=== PATIENT | male | born 1960 | race Caucasian/White ===

== ENCOUNTER 2018-01-27 17:31 | Observation (INO) ==
[2018-01-27] MEDS ORDERED: 0.9 % Sodium Chloride 1,000 ML IVC ONE (17:40)
--- NOTE | 2018-01-27 17:43 | Emergency Department Note ---
Disposition Clinical Impression: Dyspnea Qualifiers: Dyspnea type: unspecified Qualified Code(s): R06.00 - Dyspnea, unspecified Chest pain Qualifiers: Chest pain type: chest pain on breathing Qualified Code(s): R07.1 - Chest pain on breathing Disposition: Admitted As Inpatient Condition: Fair Referrals: Teresa Huizar MD [Primary Care Provider] - Forms: ED Satisfaction Letter General Adult HPI - General Chief complaint: ED Shortness of Breath/Dyspnea Stated complaint: dyspnea Time Seen by Provider: 01/27/18 17:35 Nursing Notes Reviewed: Yes Vital Signs Reviewed: Yes - History of Present Illness HPI Narrative: 57-year-old male presents to the emergency department with left-sided chest pain , shortness of breath, cough for the last 3 days. Patient states it hurts when he takes deep breaths in. Patient states he was at an urgent care and diagnosed with pneumonia there. Told to go to the emergency department if he got any worse. Patient has no history of pulmonary emboli. Denies any recent immobilization. Patient denies any history of smoking. Patient has no history of coronary artery disease. Patient denies any fever. Reports that he has not had a fever at urgent care either. - Related Data Previous Rx's Medication Instructions Recorded Ibuprofen [Motrin] 600 mg PO Q6-8H PRN 7 Days #28 tab 05/15/17 Cefdinir [Omnicef] 300 mg PO BID 7 Days #14 capsule 01/27/18 Allergies Allergy/AdvReac Type Severity Reaction Status Date / Time No Known Allergies Allergy Verified 01/27/18 14:13 All systems ED: reviewed and negative except as stated. Review of Systems: As Per HPI Constitutional: Denies: fever Cardiovascular: Reports: chest pain Respiratory: Reports: cough, dyspnea. Denies: hemoptysis Gastrointestinal: Denies: abdominal pain, nausea, vomiting Musculoskeletal: Denies: back pain Integumentary: Denies: rash Past Medical History - Past Medical History Medical history: Reports: non-contributory Surgical history: Reports: herniorrhaphy Psychiatric history: Reports: no psych history - Social History Smoking Status: Never smoker Smokeless Tobacco Status: No Alcohol use: Reports: none Drug use: Reports: none Physical Exam - General Limitations: other (Appears to be in respiratory distress) General appearance: alert - Head Head exam: normocephalic - Eye Eye exam: Present: EOMI - ENT ENT exam: normal exam - Neck Neck exam: Present: trachea midline - Chest Chest inspection: Present: normal inspection - Respiratory Respiratory exam: Present: normal lung sounds bilaterally, respiratory distress - Cardiovascular Cardiovascular exam: Present: normal rhythm, tachycardia - Abdominal Exam Abdominal exam: Present: soft, Non-Tender. Absent: distention, guarding, rebound, rigidity - Extremities Exam Extremities exam: Present: normal capillary refill - Back Exam Back exam: Present: full ROM - Neurological Exam Neurological exam: Present: alert, oriented X3, CN II-XII intact - Skin Skin exam: Present: warm, dry, intact, normal color Course Vital Signs Temperature 98.8 F 01/27/18 17:32 Pulse Rate 113 01/27/18 17:32 Respiratory Rate 24 01/27/18 17:32 O2 Sat by Pulse Oximetry 94 01/27/18 17:32 Temperature 98.8 F 01/27/18 17:58 Pulse Rate 78 01/27/18 18:40 Respiratory Rate 19 01/27/18 18:40 Blood Pressure 130/88 01/27/18 18:40 O2 Sat by Pulse Oximetry 98 01/27/18 18:40 Oxygen Delivery Oxygen Delivery Room Air Medical Decision Making - [facility] Narrative Medical decision making narrative: 57-year-old male presents emergency department with tachycardia concern for left -sided chest pain. Patient was diagnosed with pneumonia and urgent care. At this time, patient is requiring 2 L of oxygen via nasal cannula as he is hypoxic. He is also tachycardic. He appears to be in moderate discomfort. We have given patient fentanyl. Chest x-ray that was obtained earlier reveals left lower lobe pneumonia and pleural effusion. EKG does not reveal any ischemic ST changes. At this time, we have obtained a troponin. This is within normal limits. Patient is leukocytosis of 12.1. CTA of the chest was obtained to both rule out pulmonary embolus as well to further delineate the patient's chest x-ray findings. CTA revealed multifocal airspace disease with left being greater than right. He favored pneumonia. We will small pleural effusion on the left. No findings of PE. Patient will be admitted due to multifocal pneumonia, hypoxia requiring oxygen via nasal cannula, and need for pain control. Patient agreed with the plan. Not in any acute distress at time of admission. Vital Signs Temperature 98.8 F 01/27/18 17:32 Pulse Rate 113 07/08/18 17:32 Respiratory Rate 24 01/27/18 17:32 O2 Sat by Pulse Oximetry 94 01/27/18 17:32 Temperature 98.8 F 01/27/18 17:58 Pulse Rate 78 01/27/18 18:40 Respiratory Rate 19 01/27/18 18:40 Blood Pressure 130/88 01/27/18 18:40 O2 Sat by Pulse Oximetry 98 01/27/18 18:40 Oxygen Delivery Oxygen Delivery Room Air Chest CTA 01/27/18 18:19 IMPRESSION: Multifocal airspace disease, left greater than right. Pneumonia is favored over asymmetric edema Small pleural effusion on the left. No findings diagnostic of pulmonary embolus. D/ / Yo Malin / Yo Malin Interpreting Provider: Yo Malin - Lab Data Result diagrams: 01/27/18 17:56 01/27/18 17:56 Lab Results 01/27/18 01/27/18 01/27/18 Range/Units 17:56 17:56 17:56 WBC 12.1 H (4.3-11.1) K/mcL RBC 4.58 (4.19-5.50) M/mcL Hgb 13.7 (12.9-16.9) g/dL Hct 39.6 (37.5-50.1) % MCV 86.5 (83.0-100.0) fL MCH 29.9 (28.0-33.3) pg MCHC 34.6 (31.6-35.5) g/dL RDW 13.0 (11.5-14.5) % Plt Count 293 (140-400) K/mcL MPV 8.8 L (9.4-12.4) fL Immature Gran % 0.4 (0-4) % Seg Neutrophils % 75.6 % Lymphocytes % 13.0 % Monocytes % 9.4 % Eosinophils % 1.3 % Basophils % 0.3 % Neutrophils # 9.1 H (1.6-8.9) K/mcL Lymphocytes # 1.6 (0.6-4.6) K/mcL Monocytes # 1.1 (0.0-1.3) K/mcL Eosinophils # 0.2 (0.0-0.6) K/mcL Basophils # 0.0 (0.0-0.2) K/mcL Sodium 136 (136-145) mEq/L Potassium 4.0 (3.5-5.1) mEq/L Chloride 104 (98-107) mEq/L Carbon Dioxide 23 (23-29) mEq/L BUN 12 (6-20) mg/dL Creatinine 0.76 (0.70-1.30) mg/dL Est GFR ( Amer) > 60 (> 60) Est GFR (Non-Af Amer) > 60 (> 60) BUN/Creatinine Ratio 16 (6-26) Glucose 109 H (70-105) mg/dL Calculated Osmolality 282 (280-300) Lactic Acid 0.6 (0.5-2.2) mmol/L Calcium 9.8 (8.6-10.3) mg/dL Troponin I < 0.03 (< 0.04) ng/mL B-Natriuretic Peptide (Less than 100) pg/mL 01/27/18 01/27/18 Range/Units 17:56 19:50 WBC (4.3-11.1) K/mcL RBC (4.19-5.50) M/mcL Hgb (12.9-16.9) g/dL Hct (37.5-50.1) % MCV (83.0-100.0) fL MCH (28.0-33.3) pg MCHC (31.6-35.5) g/dL RDW (11.5-14.5) % Plt Count (140-400) K/mcL MPV (9.4-12.4) fL Immature Gran % (0-4) % Seg Neutrophils % % Lymphocytes % % Monocytes % % Eosinophils % % Basophils % % Neutrophils # (1.6-8.9) K/mcL Lymphocytes # (0.6-4.6) K/mcL Monocytes # (0.0-1.3) K/mcL Eosinophils # (0.0-0.6) K/mcL Basophils # (0.0-0.2) K/mcL Sodium (136-145) mEq/L Potassium (3.5-5.1) mEq/L Chloride (98-107) mEq/L Carbon Dioxide (23-29) mEq/L BUN (6-20) mg/dL Creatinine (0.70-1.30) mg/dL Est GFR ( Amer) (> 60) Est GFR (Non-Af Amer) (> 60) BUN/Creatinine Ratio (6-26) Glucose (70-105) mg/dL Calculated Osmolality (280-300) Lactic Acid 1.1 (0.5-2.2) mmol/L Calcium (8.6-10.3) mg/dL Troponin I (< 0.04) ng/mL B-Natriuretic Peptide 21 (Less than 100) pg/mL - EKG Data EKG #1 EKG attestation: Yes I reviewed and interpreted this EKG. EKG results narrative: 17:38 Ventricular rate 103 bpm, W[place] interval 147 ms, QRS duration 86 ms, QT 311 ms, QTC 370 ms, normal axis. Sinus tachycardia with a ventricular rate of 103 bpm. There is no ischemic ST changes on this EKG. Compared to a study obtained on 04/26/2012. EKG #2 obtained 18:21 Ventricular rate 76 bpm, W[place] interval 152 ms, QRS duration 89 ms, QT 341 ms, QTC 372 ms, normal axis. Sinus rhythm ventricular rate of 76 bpm. Inverted T-wave in lead 3 not seen on EKG obtained at 17:38. No other changes noted.
[2018-01-27] MEDS ORDERED: Ipratropium/Albuterol Neb 3 ML IH ONE (17:54)
[2018-01-27] MEDS ORDERED: *HR* FentaNYL (PF) 100 MCG/2 ML VIAL IVP ONE ×3 (17:56→20:11)
[2018-01-27 18:15] LABS: Basophils % 0.3 %; Eosinophils # 0.2 K/mcL (0.0-0.6); Eosinophils % 1.3 %; Hematocrit 39.6 % (37.5-50.1); Hemoglobin 13.7 g/dL (12.9-16.9); Immature Granulocytes % 0.4 % (0-4); Lymphocytes # 1.6 K/mcL (0.6-4.6); Mean Corpuscular HGB Conc 34.6 g/dL (31.6-35.5); Mean Corpuscular Hemoglobin 29.9 pg (28.0-33.3); Mean Corpuscular Volume 86.5 fL (83.0-100.0); Mean Platelet Volume 8.8 fL (9.4-12.4); Monocytes # 1.1 K/mcL (0.0-1.3); Monocytes % 9.4 %; Neutrophils # 9.1 K/mcL (1.6-8.9); Platelet Count 293 K/mcL (140-400); Red Blood Count 4.58 M/mcL (4.19-5.50); Segmented Neutrophils % 75.6 %
[2018-01-27] MEDS ORDERED: Isovue-370 500 ML INFUS..BTL IV ONE (18:19)
[2018-01-27 18:36] LABS: BUN/Creatinine Ratio 16 (6-26); Blood Urea Nitrogen 12 mg/dL (6-20); Calcium 9.8 mg/dL (8.6-10.3); Carbon Dioxide 23 mEq/L (23-29); Chloride 104 mEq/L (98-107); Glucose 109 mg/dL (70-105); Osmolality,Calculated 282 (280-300); Sodium 136 mEq/L (136-145); eGFR For African Americans > 60 (> 60); eGFR For Non-African Americans > 60 (> 60)
[2018-01-27 18:38] LABS: Troponin I < 0.03 ng/mL (< 0.04)
--- NOTE | 2018-01-27 18:38 | Emergency Department Note ---
Disposition Clinical Impression: Dyspnea Qualifiers: Dyspnea type: unspecified Qualified Code(s): R06.00 - Dyspnea, unspecified Chest pain Qualifiers: Chest pain type: chest pain on breathing Qualified Code(s): R07.1 - Chest pain on breathing Disposition: Still a Patient Condition: Fair Referrals: Teresa Huizar MD [Primary Care Provider] - Forms: ED Satisfaction Letter SOB HPI - General Chief Complaint: ED Shortness of Breath/Dyspnea Stated Complaint: dyspnea Time Seen by Provider: 01/27/18 17:35 Source: patient Limitations: other (Appears to be in respiratory distress) Nursing Notes Reviewed: Yes Vital Signs Reviewed: Yes - Related Data Previous Rx's Medication Instructions Recorded Ibuprofen [Motrin] 600 mg PO Q6-8H PRN 7 Days #28 tab 05/15/17 Cefdinir [Omnicef] 300 mg PO BID 7 Days #14 capsule 01/27/18 Allergies Allergy/AdvReac Type Severity Reaction Status Date / Time No Known Allergies Allergy Verified 01/27/18 14:13 Constitutional: Denies: fever Cardiovascular: Reports: chest pain Respiratory: Reports: cough, dyspnea. Denies: hemoptysis Gastrointestinal: Denies: abdominal pain, nausea, vomiting Musculoskeletal: Denies: back pain Integumentary: Denies: rash Past Medical History - Past Medical History Medical history: Reports: non-contributory Surgical history: Reports: herniorrhaphy Psychiatric history: Reports: no psych history - Social History Smoking Status: Never smoker Smokeless Tobacco Status: No Alcohol use: Reports: none Drug use: Reports: none Physical Exam - General Limitations: other (Appears to be in respiratory distress) General appearance: alert Course Vital Signs Temperature 98.8 F 01/27/18 17:32 Pulse Rate 113 01/27/18 17:32 Respiratory Rate 24 01/27/18 17:32 O2 Sat by Pulse Oximetry 94 01/27/18 17:32 Temperature 98.8 F 01/27/18 17:58 Pulse Rate 78 01/27/18 18:40 Respiratory Rate 19 01/27/18 18:40 Blood Pressure 130/88 01/27/18 18:40 O2 Sat by Pulse Oximetry 98 01/27/18 18:40 Oxygen Delivery Oxygen Delivery Room Air Shortness of Breath/Dyspnea - Lab Data Result diagrams: 01/27/18 17:56 07/08/18 17:56 Lab Results 01/27/18 01/27/18 01/27/18 Range/Units 17:56 17:56 17:56 WBC 12.1 H (4.3-11.1) K/mcL RBC 4.58 (4.19-5.50) M/mcL Hgb 13.7 (12.9-16.9) g/dL Hct 39.6 (37.5-50.1) % MCV 86.5 (83.0-100.0) fL MCH 29.9 (28.0-33.3) pg MCHC 34.6 (31.6-35.5) g/dL RDW 13.0 (11.5-14.5) % Plt Count 293 (140-400) K/mcL MPV 8.8 L (9.4-12.4) fL Immature Gran % 0.4 (0-4) % Seg Neutrophils % 75.6 % Lymphocytes % 13.0 % Monocytes % 9.4 % Eosinophils % 1.3 % Basophils % 0.3 % Neutrophils # 9.1 H (1.6-8.9) K/mcL Lymphocytes # 1.6 (0.6-4.6) K/mcL Monocytes # 1.1 (0.0-1.3) K/mcL Eosinophils # 0.2 (0.0-0.6) K/mcL Basophils # 0.0 (0.0-0.2) K/mcL Sodium 136 (136-145) mEq/L Potassium 4.0 (3.5-5.1) mEq/L Chloride 104 (98-107) mEq/L Carbon Dioxide 23 (23-29) mEq/L BUN 12 (6-20) mg/dL Creatinine 0.76 (0.70-1.30) mg/dL Est GFR ( Amer) > 60 (> 60) Est GFR (Non-Af Amer) > 60 (> 60) BUN/Creatinine Ratio 16 (6-26) Glucose 109 H (70-105) mg/dL Calculated Osmolality 282 (280-300) Lactic Acid 0.6 (0.5-2.2) mmol/L Calcium 9.8 (8.6-10.3) mg/dL Troponin I < 0.03 (< 0.04) ng/mL B-Natriuretic Peptide (Less than 100) pg/mL 01/27/18 01/27/18 Range/Units 17:56 19:50 WBC (4.3-11.1) K/mcL RBC (4.19-5.50) M/mcL Hgb (12.9-16.9) g/dL Hct (37.5-50.1) % MCV (83.0-100.0) fL MCH (28.0-33.3) pg MCHC (31.6-35.5) g/dL RDW (11.5-14.5) % Plt Count (140-400) K/mcL MPV (9.4-12.4) fL Immature Gran % (0-4) % Seg Neutrophils % % Lymphocytes % % Monocytes % % Eosinophils % % Basophils % % Neutrophils # (1.6-8.9) K/mcL Lymphocytes # (0.6-4.6) K/mcL Monocytes # (0.0-1.3) K/mcL Eosinophils # (0.0-0.6) K/mcL Basophils # (0.0-0.2) K/mcL Sodium (136-145) mEq/L Potassium (3.5-5.1) mEq/L Chloride (98-107) mEq/L Carbon Dioxide (23-29) mEq/L BUN (6-20) mg/dL Creatinine (0.70-1.30) mg/dL Est GFR ( Amer) (> 60) Est GFR (Non-Af Amer) (> 60) BUN/Creatinine Ratio (6-26) Glucose (70-105) mg/dL Calculated Osmolality (280-300) Lactic Acid 1.1 (0.5-2.2) mmol/L Calcium (8.6-10.3) mg/dL Troponin I (< 0.04) ng/mL B-Natriuretic Peptide 21 (Less than 100) pg/mL Attestation Statement - Attestation Attestation: I, Virgil Gracia, examined this patient and my medical decision-making was reviewed with the [employer] I INSPECTOR/PA/Advanced Practice Nurse/Resident Physician. I agree with the documented findings, disposition and treatment plan as described except to the extent set forth below. 57-year-old male presents emergency Department with concerns of dyspnea and left lower chest pain. Patient states pain has been present over the past 3 days. Patient states pain is progressively worsened. He was seen at an urgent care earlier today who diagnosed him with pneumonia with effusion. He is prescribed an antibiotic which she had not yet taken. He had all was return home when he had significant worsening of his breathing. He return to the emergency department for further evaluation. Patient had increased oxygen demand during the evaluation however he was not in respiratory distress. At one point during the evaluation he became hypotensive, this is likely secondary to vasovagal reaction as he had just had an IV placed. We will obtain CT of the chest to rule out loculations of this effusion. Imaging pending at this time however He will likely be treated as pneumonia and admitted to the hospital for further care and evaluation.
[2018-01-27] MEDS ORDERED: Levofloxacin 750 MG/150 ML 750 MG/150 ML BAG IVPB ONE (19:32)
[2018-01-27] MEDS ORDERED: *HR* Morphine Immed Rel 30 MG TABLET PO STA (20:07)
[2018-01-27] MEDS ORDERED: Ibuprofen 400 MG TABLET PO PRN (23:44)
[2018-01-27] MEDS ORDERED: traMADol 50 MG TABLET PO PRN (23:44)
[2018-01-27] MEDS ORDERED: *HR* OxyCODONE Immed Rel 5 MG TABLET PO PRN (23:44)
[2018-01-27] MEDS ORDERED: Naloxone 0.4 MG/ML INJ IVP PRN (23:44)
--- NOTE | 2018-01-27 23:52 | Internal Med History&Physical ---
Date of Encounter: 01/27/18 Time of Encounter: 23:48 Internal Medicine - H&P: HPI Chief complaint: Shortness of breath Admitted From: Home Plans for Post Hospital Care: Home History of present illness: Mr. Mayer is a 57 year old male with no significant medical history who presented to the emergency room with complaints of shortness of breath which has been going on for the past 3 days. The patient reports associated left- sided chest pain radiating to his neck and his back. Pain is said to be severe scale of 8 out of 10, radiates to the back to the neck, worse with respiration, but associated with exertion, with no known relieving factors. The patient presented to an urgent care where he was informed that he had to pneumonia and was told to present to the ER if he got any worse. He denies fever or chills, he denies any sick contacts or recent travels. The patient reports mild cough with no phlegm production. The patient is a nonsmoker, and does not take any medications at home. Said to have elevated cholesterol by primary care physician during his last visit 6 months ago, on lifestyle modification only. He denies leg edema, no significant family history of cardiac disease at an early age. He denies any recent increase in exercises, he denies illicit drug use. He denies nausea vomiting or diarrhea, no change in bowel habits, no genitourinary symptoms. He denies neurologic symptoms. In the emergency room, he was found to be tachycardic, and hypoxic on arrival. He was said to be in moderate discomfort, chest x-ray showed left lower lobe pneumonia and pleural effusion, EKG was normal sinus rhythm without ST segment changes, troponin was negative, BNP was within normal limits. He had leukocytosis of 12.1. CT angiogram was done due to suspicion for pulmonary embolism, pulmonary embolism was ruled out. The patient continued to be hypoxic in the ER requiring 2 L of oxygen, therefore he was presented for admission due to pneumonia with hypoxia. Past Med Surg Social Fam HX - Past Medical History Medical history: non-contributory Psychiatric history: no psych history - Past Surgical History Surgical History: herniorrhaphy Additional surgical history: R roator cuff, bilateral carpal tunnel - Social History Smoking Status: Never smoker Smokeless Tobacco Status: No Alcohol use: none Drug use: none Internal Medicine - H&P: Meds Ibuprofen [Motrin] 600 mg PO Q6-8H PRN 7 Days #28 tab 05/15/17 [Rx] Cefdinir [Omnicef] 300 mg PO BID 7 Days #14 capsule 01/27/18 [Rx] 3 Allergy/AdvReac Type Severity Reaction Status Date / Time No Known Allergies Allergy Verified 01/27/18 14:13 All Systems PM: A 10-system review of systems was performed and is negative for pertinent findings except as documented above in the HPI. - Constitutional Constitutional: as per HPI - EENT Eyes: as per HPI Ears: as per HPI Nose, mouth and throat: as per HPI - Cardiovascular Cardiovascular ROS IM: as per HPI - Respiratory Respiratory: as per HPI - Gastrointestinal Gastrointestinal: as per HPI - Musculoskeletal Musculoskeletal ROS IM: as per HPI - Integumentary Integumentary IM: as per HPI - Neurological Neurological ROS: as per HPI - Hematologic/Lymphatic Hematologic/Lymphatic: as per HPI - Constitutional Vitals: Temp Pulse Resp BP Pulse Ox 98.8 F 78 19 130/88 98 01/27/18 17:58 01/27/18 18:40 01/27/18 18:40 01/27/18 18:40 01/27/18 18:40 General appearance: Present: mild distress, A&O X 3, pleasant - Head Head exam: Present: atraumatic, normocephalic - Eye Eye exam: Present: PERRL, conjuntiva pink, sclera anicteric Pupils: Present: PERRL - Neck Neck exam general surgery: Present: supple, trachea midline. Absent: lymphadenopathy - Respiratory Additional comments: Decreased breath sounds on the left lower lung zone, rhonchi on the left lung zone. - Cardiovascular Cardiovascular exam: Present: RRR, +S1, +S2. Absent: diastolic murmur, gallop, rubs, systolic murmur - GI/Abdominal GI/Abdominal exam: Present: normal bowel sounds, soft, no peritoneal signs. Absent: distended, tenderness - Extremities Exam Extremities exam: Present: warm, radial pulses palpable and symmetrical. Absent : calf tenderness, cyanotic, pedal edema - Neurological Exam Neurological exam: Present: alert, CN II-XII intact, oriented X3, no focal deficits. Absent: pronater drift, facial droop, speech deficit - Skin Skin exam: Present: dry, intact Internal Med - H&P Results - Labs CBC & Chem 7: 01/27/18 17:56 01/27/18 17:56 Labs: Short CBC 01/27/18 Range/Units 17:56 WBC 12.1 H (4.3-11.1) K/mcL Hgb 13.7 (12.9-16.9) g/dL Hct 39.6 (37.5-50.1) % Plt Count 293 (140-400) K/mcL Neutrophils # 9.1 H (1.6-8.9) K/mcL BMP 01/27/18 17:56 Sodium 136 Potassium 4.0 Chloride 104 Carbon Dioxide 23 BUN 12 Creatinine 0.76 Glucose 109 H Calcium 9.8 Cardiac Enzymes 01/27/18 Range/Units 17:56 Troponin I < 0.03 (< 0.04) ng/mL - Impressions ITS Impressions Chest CTA 01/27/18 18:19 IMPRESSION: Multifocal airspace disease, left greater than right. Pneumonia is favored over asymmetric edema Small pleural effusion on the left. No findings diagnostic of pulmonary embolus. D/ / Yo Malin / Yo Malin Interpreting Provider: Yo Malin - Assessment and plan (1) Chest pain Current Visit: Yes Status: Acute Assessment and plan: Pleuritic chest pain likely due to pneumonia. Check lipid panel in the morning due to prior history of elevated cholesterol, initial troponin negative, EKG unremarkable. Obtain echocardiogram cycle troponins 3. Pain control. CTA noted-no pulmonary embolism Qualifiers: Chest pain type: chest pain on breathing Qualified Code(s): R07.1 - Chest pain on breathing; R07.81 - Pleurodynia (2) Pneumonia Current Visit: Yes Status: Acute Assessment and plan: The patient is afebrile, presented with shortness of breath and cough with left pleuritic chest pain and multiple chest imaging showing left lower lung pneumonia with pleural effusion. Check urinary streptococcal and legionella antigen Continue Levaquin IV every 24 hours Continue supplemental oxygen Qualifiers: Pneumonia type: due to unspecified organism Laterality: left Lung location: lower lobe of lung Qualified Code(s): J18.1 - Lobar pneumonia, unspecified organism (3) Hypoxia Current Visit: Yes Status: Acute Assessment and plan: Patient requiring 2 L of oxygen and saturating 96% at rest. Wean oxygen as tolerated, continue supplemental oxygen. - Time Spent With Patient Total time spent is greater than 50% in coordination of care (as documented) at patient's floor/unit and/or counseling patient:
[2018-01-28 06:02] LABS: Basophils % 0.2 %; Eosinophils % 0.2 %; Hematocrit 35.9 % (37.5-50.1); Immature Granulocytes % 0.3 % (0-4); Lymphocytes # 1.1 K/mcL (0.6-4.6); Lymphocytes % 8.8 %; Mean Corpuscular HGB Conc 33.7 g/dL (31.6-35.5); Mean Corpuscular Hemoglobin 29.6 pg (28.0-33.3); Mean Corpuscular Volume 87.8 fL (83.0-100.0); Mean Platelet Volume 8.6 fL (9.4-12.4); Monocytes # 1.3 K/mcL (0.0-1.3); Monocytes % 10.4 %; Neutrophils # 9.7 K/mcL (1.6-8.9); Platelet Count 239 K/mcL (140-400); Red Blood Count 4.09 M/mcL (4.19-5.50); Red Cell Distribution Width 13.2 % (11.5-14.5); Segmented Neutrophils % 80.1 %
[2018-01-28 06:04] LABS: Hemoglobin 12.1 g/dL (12.9-16.9)
--- NOTE | 2018-01-28 09:05 | Internal Med Progress Note ---
<Ronny Crawley S - Last Filed: 01/28/18 12:54> Date of Encounter: 01/28/18 Time of Encounter: 09:03 - Assessment and plan (1) Pneumonia Current Visit: Yes Status: Acute Assessment and plan: Pt is afebrile, has some SOB and denies cough. There is left pleuritic pain, most likely 2/2 pneumonia or some MSK involvement. CXR showed left lower lung pneumonia with small pleural effusion. Pt is on IV Levaquin q24hr, day 2 Pt is on supplemental O2 Strep and legionella antigen negative. Qualifiers: Pneumonia type: due to unspecified organism Laterality: left Lung location: lower lobe of lung Qualified Code(s): J18.1 - Lobar pneumonia, unspecified organism (2) Chest pain Current Visit: Yes Status: Acute Assessment and plan: Pleuritic chest pain likely due to pneumonia or MSK component Troponins negative, BNP 21. LDL 100, cholesterol 170. Encourage pt to eat a low fat, low cholesterol heart healthy diet. Pt has family hx of CAD in the father. ECHO ordered. Qualifiers: Chest pain type: chest pain on breathing Qualified Code(s): R07.1 - Chest pain on breathing; R07.81 - Pleurodynia (3) Leukocytosis Current Visit: Yes Status: Acute Assessment and plan: Pt WBC count today is 12.1, most likely due to pneumonia. Pt on Levoquin IV day 2. Will check CBC in AM. Will monitor renal fxn. Qualifiers: Leukocytosis type: unspecified Qualified Code(s): D72.829 - Elevated white blood cell count, unspecified (4) Hypoxia Current Visit: Yes Status: Acute Assessment and plan: Pt on supplemental O2. Can wean off O2. (5) Obesity (BMI 30.0-34.9) Current Visit: No Status: Chronic Assessment and plan: BMI 32. Encourage pt to eat a heart healthy low fat, low cholesterol diet and to get regular exercise. (6) Acute respiratory failure with hypoxia Current Visit: Yes Status: Acute Assessment and plan: Pt admitted to the hospital and required O2. Pt not on O2 at home. Pt to be weaned from O2 today Incentive spirometry Guafenacine for mucolytic - Time Spent With Patient Total time spent is greater than 50% in coordination of care (as documented) at patient's floor/unit and/or counseling patient: 25 - 35 minutes - Subjective Interval history: Pt is seen at bedside. He came in yesterday after work because of SOB. He states he is still short of breath and has some chest pain that is around his left pec area, no radiation, feels tight. Pt denies any cough or sputum production. He denies any fever, chills, weight loss, dizziness, LOC, vision changes, N/V/D, abd pain. He states his job includes a lot of activity , so chest pain is most likely MSK in origin - troponins and BNP are WNL. - Constitutional Vitals: Temp Pulse Resp BP Pulse Ox 98.3 F 74 16 104/65 97 01/28/18 07:43 01/28/18 07:43 01/28/18 07:43 01/28/18 07:43 01/28/18 07:43 General appearance: Present: A&O X 3, pleasant, obese - Head Head exam: Present: normal inspection - ENT ENT exam: Present: mucous membranes moist - Neck Neck exam general surgery: Present: supple - Respiratory Respiratory exam: Present: chest wall tenderness, decreased breath sounds - Expanded Respiratory Exam Location: decreased breath sounds: Left, Lower - Cardiovascular Cardiovascular exam: Present: RRR, +S1, +S2 - GI/Abdominal GI/Abdominal exam: Present: firm, normal bowel sounds, no peritoneal signs - Extremities Exam Extremities exam: Present: normal capillary refill, normal inspection - Neurological Exam Neurological exam: Present: oriented X3, no focal deficits - Skin Skin exam: Present: intact Internal Medicine: Result - Labs CBC & Chem 7: 01/28/18 05:47 01/27/18 17:56 Labs: Short CBC 01/28/18 Range/Units 05:47 WBC 12.2 H (4.3-11.1) K/mcL Hgb 12.1 L D (12.9-16.9) g/dL Hct 35.9 L (37.5-50.1) % Plt Count 239 (140-400) K/mcL Neutrophils # 9.7 H (1.6-8.9) K/mcL Cardiac Enzymes 01/28/18 Range/Units 05:47 Troponin I < 0.03 (< 0.04) ng/mL Consult Discharge Plan - Plan Referrals: Teresa Huizar MD [Primary Care Provider] - <Raymundo Vazquez - Last Filed: 01/28/18 17:21> Date of Encounter: 01/28/18 - Assessment and plan (1) Pneumonia Current Visit: Yes Status: Acute Qualifiers: Pneumonia type: due to unspecified organism Laterality: left Lung location: lower lobe of lung Qualified Code(s): J18.1 - Lobar pneumonia, unspecified organism (2) Chest pain Current Visit: Yes Status: Acute Qualifiers: Chest pain type: chest pain on breathing Qualified Code(s): R07.1 - Chest pain on breathing; R07.81 - Pleurodynia (3) Hypoxia Current Visit: Yes Status: Acute (4) Obesity (BMI 30.0-34.9) Current Visit: No Status: Chronic (5) Leukocytosis Current Visit: Yes Status: Acute Qualifiers: Leukocytosis type: unspecified Qualified Code(s): D72.829 - Elevated white blood cell count, unspecified (6) Acute respiratory failure with hypoxia Current Visit: Yes Status: Acute - Time Spent With Patient Total time spent is greater than 50% in coordination of care (as documented) at patient's floor/unit and/or counseling patient: - Constitutional Vitals: Temp Pulse Resp BP Pulse Ox 99.3 F 75 17 134/78 93 01/28/18 16:06 01/28/18 16:06 01/28/18 16:06 01/28/18 16:06 01/28/18 16:06 Internal Medicine: Result - Labs CBC & Chem 7: 01/28/18 05:47 01/27/18 17:56 Labs: Short CBC 01/28/18 Range/Units 05:47 WBC 12.2 H (4.3-11.1) K/mcL Hgb 12.1 L D (12.9-16.9) g/dL Hct 35.9 L (37.5-50.1) % Plt Count 239 (140-400) K/mcL Neutrophils # 9.7 H (1.6-8.9) K/mcL Cardiac Enzymes 01/28/18 Range/Units 05:47 Troponin I < 0.03 (< 0.04) ng/mL - Attending Attestation I examined this patient and my medical decision-making was reviewed with the Resident Physician. I agree with the documented findings, disposition and treatment plan as described except to the extent set forth below. Patient is in no acute distress this morning. On exam, he has poor inspiratory effort from pain but lungs clear with decreased breath sounds. CVS exam unremarkable. He is still on O2 and will need to be weaned. De escalate antibiotics to Rocephin, encourage I.S., give Mucinex. Anticipate discharge once weaned off oxygen.
[2018-01-28] MEDS: cefTRIAXone 1,000 MG in Water for inj. (sterile) 20 ML 10 ML IVP SCH (12:00)
[2018-01-28] MEDS ORDERED: Levofloxacin 750 MG/150 ML 750 MG/150 ML BAG IVPB SCH (15:00)
[2018-01-28] MEDS ORDERED: Albuterol 2.5 MG/3 ML NEBULIZER IH PRN (17:08)
--- NOTE | 2018-01-28 19:06 | Electrocardiograph Report ---
[place] [id number] Test Date: 2018-01-27 Pat Name: Harvey Mayer Department: 103 Room: 2A25 Gender: Chief Of Production: DARLINE : 1960 Requested By: Mathieu Stephens Order Number: [id number] Reading MD: Rusty Gunderson Measurements Intervals [place] Rate: 76 P: 40 MA: 152 QRS: 31 QRSD: 89 T: 26 QT: 341 QTc: 372 Interpretive Statements SINUS RHYTHM Electronically Signed On 01-28-2018 19:04:33 EDT by Rusty Gunderson
[2018-01-29 04:24] LABS: Basophils % 0.4 %; Eosinophils # 0.3 K/mcL (0.0-0.6); Eosinophils % 2.8 %; Hematocrit 37.7 % (37.5-50.1); Hemoglobin 12.8 g/dL (12.9-16.9); Immature Granulocytes % 0.3 % (0-4); Lymphocytes # 1.6 K/mcL (0.6-4.6); Lymphocytes % 16.8 %; Mean Corpuscular Hemoglobin 30.4 pg (28.0-33.3); Mean Corpuscular Volume 89.5 fL (83.0-100.0); Mean Platelet Volume 8.8 fL (9.4-12.4); Monocytes # 1.1 K/mcL (0.0-1.3); Neutrophils # 6.6 K/mcL (1.6-8.9); Platelet Count 264 K/mcL (140-400); Red Blood Count 4.21 M/mcL (4.19-5.50); Red Cell Distribution Width 13.1 % (11.5-14.5); Segmented Neutrophils % 68.7 %
[2018-01-29 05:08] LABS: Alanine Aminotransferase 24 Units/L (7-52); Albumin 3.7 g/dL (3.5-5.7); Albumin/Globulin Ratio 1.1 (1.1-2.2); Alkaline Phosphatase 85 Units/L (34-104); Aspartate Amino Transferase 24 Units/L (13-39); BUN/Creatinine Ratio 15 (6-26); Bilirubin,Total 1.3 mg/dL (0.3-1.0); Blood Urea Nitrogen 12 mg/dL (6-20); Calcium 9.3 mg/dL (8.6-10.3); Carbon Dioxide 25 mEq/L (23-29); Chloride 103 mEq/L (98-107); Globulin 3.4 g/dL (2.4-3.5); Glucose 101 mg/dL (70-105); Osmolality,Calculated 282 (280-300); Potassium 4.1 mEq/L (3.5-5.1); Sodium 136 mEq/L (136-145); Total Protein 7.1 g/dL (6.4-8.9); eGFR For African Americans > 60 (> 60); eGFR For Non-African Americans > 60 (> 60)
[2018-01-29] MEDS ORDERED: *HR* Enoxaparin 40 MG/0.4 ML SYRINGE SQ SCH (06:00)
[2018-01-29] MEDS: cefTRIAXone 1,000 MG in Water for inj. (sterile) 20 ML 10 ML IVP SCH (07:53)
--- NOTE | 2018-01-29 10:06 | Internal Med Progress Note ---
<Ronny Crawley S - Last Filed: 01/29/18 18:38> Date of Encounter: 01/29/18 Time of Encounter: 08:50 - Assessment and plan (1) Pneumonia Status: Acute Assessment and plan: Pt temperature was 99 this morning. Down to 97 now. has some SOB and is coughing up some brown mucus. There is left pleuritic pain, most likely 2/2 pneumonia. NO radiation, troponins were negative. CXR showed left lower lung pneumonia with small pleural effusion. Pt is on IV Rocephin day 2 Pt weaned off of supplemntal O2. Strep and legionella antigen negative. Will check CBC and renal fxn in the morning. Continue inspiratory spirometry . Qualifiers: Pneumonia type: due to unspecified organism Laterality: left Lung location: lower lobe of lung Qualified Code(s): J18.1 - Lobar pneumonia, unspecified organism (2) Chest pain Status: Acute Assessment and plan: Pleuritic chest pain likely due to pneumonia. Troponins negative, BNP 21. LDL 100, cholesterol 170. Encourage pt to eat a low fat, low cholesterol heart healthy diet. Pt has family hx of CAD in the father. ECHO ordered and is pending Qualifiers: Chest pain type: chest pain on breathing Qualified Code(s): R07.1 - Chest pain on breathing; R07.81 - Pleurodynia (3) Obesity (BMI 30.0-34.9) Status: Chronic Assessment and plan: BMI 32. Encourage pt to eat a heart healthy low fat, low cholesterol diet and to get regular exercise. - Time Spent With Patient Total time spent is greater than 50% in coordination of care (as documented) at patient's floor/unit and/or counseling patient: less than 15 minutes - Subjective Interval history: Pt is seen at bedside. He is hospital day2. He has no new complaints. He states that his SOB is only with exertion and is ambulating and walking down halls. He has some chest pain , most likely pleuritic, with exertion as well. Chest pain doesn't radiate. He is coughing up some dark brown mucus, I asked to see but he said he had thrown it away and had it all covered up. He is tolerating diet, using spirometry. He denies fever, chills, dizziness, vision changes. He has no complaints of N/V/ D or abd pain. Reassured pt chest pain is not cardiac in nature - troponins and BNP are WNL. - Constitutional Vitals: Temp Pulse Resp BP Pulse Ox 97.7 F 90 16 131/75 94 01/29/18 07:58 01/29/18 07:58 01/29/18 07:58 01/29/18 07:58 01/29/18 07:58 General appearance: Present: A&O X 3, pleasant, obese - Head Head exam: Present: normal inspection - Neck Neck exam general surgery: Present: supple - Respiratory Respiratory exam: Present: decreased breath sounds (decreased breath sounds in left lower lung field, mild decrease on the right side but left decreased more than right) - Cardiovascular Cardiovascular exam: Present: RRR, +S1, +S2 - GI/Abdominal GI/Abdominal exam: Present: normal bowel sounds, soft, no peritoneal signs - Neurological Exam Neurological exam: Present: no focal deficits - Psychiatric Psychiatric exam: Present: normal mood - Skin Skin exam: Present: intact Internal Medicine: Result - Labs CBC & Chem 7: 01/29/18 03:47 01/29/18 03:47 Labs: Short CBC 01/29/18 Range/Units 03:47 WBC 9.6 (4.3-11.1) K/mcL Hgb 12.8 L (12.9-16.9) g/dL Hct 37.7 (37.5-50.1) % Plt Count 264 (140-400) K/mcL Neutrophils # 6.6 (1.6-8.9) K/mcL BMP 01/29/18 03:47 Sodium 136 Potassium 4.1 Chloride 103 Carbon Dioxide 25 BUN 12 Creatinine 0.79 Glucose 101 Calcium 9.3 Liver Function 01/29/18 Range/Units 03:47 Total Bilirubin 1.3 H (0.3-1.0) mg/dL AST 24 (13-39) Units/L ALT 24 (7-52) Units/L Alkaline Phosphatase 85 (34-104) Units/L Albumin 3.7 (3.5-5.7) g/dL Consult Discharge Plan - Plan Instructions: Naproxen (By mouth), Guaifenesin (By mouth), Cefdinir (By mouth) , Pneumonia (DC) Referrals: Teresa Huizar MD [Primary Care Provider] - Prescriptions: Cefdinir [Omnicef] 300 mg PO BID #14 capsule GuaiFENesin ER [Mucinex] 600 mg PO BID #10 tbbp.12hr Naproxen 125 mg PO Q12-24H PRN 7 Days #14 oral.susp PRN Reason: Pain <Rayumndo Vazquez - Last Filed: 01/29/18 19:02> Date of Encounter: 01/29/18 - Assessment and plan (1) Pneumonia Status: Acute (2) Chest pain Status: Acute (3) Obesity (BMI 30.0-34.9) Status: Chronic - Time Spent With Patient Total time spent is greater than 50% in coordination of care (as documented) at patient's floor/unit and/or counseling patient: - Constitutional Vitals: Temp Pulse Resp BP Pulse Ox 97.8 F 82 20 135/82 95 01/29/18 12:05 01/29/18 12:05 01/29/18 12:05 01/29/18 12:05 01/29/18 12:05 Internal Medicine: Result - Labs CBC & Chem 7: 01/29/18 03:47 01/29/18 03:47 Labs: Short CBC 01/29/18 Range/Units 03:47 WBC 9.6 (4.3-11.1) K/mcL Hgb 12.8 L (12.9-16.9) g/dL Hct 37.7 (37.5-50.1) % Plt Count 264 (140-400) K/mcL Neutrophils # 6.6 (1.6-8.9) K/mcL BMP 01/29/18 03:47 Sodium 136 Potassium 4.1 Chloride 103 Carbon Dioxide 25 BUN 12 Creatinine 0.79 Glucose 101 Calcium 9.3 Liver Function 01/29/18 Range/Units 03:47 Total Bilirubin 1.3 H (0.3-1.0) mg/dL AST 24 (13-39) Units/L ALT 24 (7-52) Units/L Alkaline Phosphatase 85 (34-104) Units/L Albumin 3.7 (3.5-5.7) g/dL - Attending Attestation I examined this patient and my medical decision-making was reviewed with the Resident Physician. I agree with the documented findings, disposition and treatment plan as described except to the extent set forth below. He was able to titrate O2 to room air, likely can be discharged today.
--- NOTE | 2018-01-29 11:17 | Discharge Summary ---
<Ronny Crawley S - Last Filed: 01/29/18 13:58> - NOTES TO OUTPATIENT PROVIDER Notes to Outpatient Provider: Pt admitted for pneumonia in the lower left lung. He was given Levaquin IV and was switched to Rocephin IV on day 2. He is being discharged on Omnicef 300mg PO BID and naproxen prn for chest pain. Chest pain is most likely pleuritic in nature from the pneumonia. He is also given guafenisin for mucus brekaup and was encouraged to use a spirometer. Orders not resulted at time of discharge: Pending orders 01/28/18 10:25 Mycoplasma pneumoniae IgG IgM Routine Date of Encounter: 01/29/18 Time of Encounter: 10:47 - Discharge Diagnosis (1) Pneumonia Priority: Primary Status: Acute Assessment and Plan: Pt temperature was 99 this morning. Down to 97 now. has some SOB and is coughing up some brown mucus. There is left pleuritic pain, most likely 2/2 pneumonia. NO radiation, troponins were negative. CXR showed left lower lung pneumonia with small pleural effusion. Pt is on IV Rocephin day 2 Pt weaned off of supplemntal O2. Strep and legionella antigen negative. Continue inspiratory spirometry . Will d/c rocephin and discharge on PO omnicef 300mg BID q12hr Qualifiers: Pneumonia type: due to unspecified organism Laterality: left Lung location: lower lobe of lung Qualified Code(s): J18.1 - Lobar pneumonia, unspecified organism (2) Chest pain Priority: Primary Status: Acute Assessment and Plan: Pleuritic chest pain likely due to pneumonia. Troponins negative, BNP 21. LDL 100, cholesterol 170. Encourage pt to eat a low fat, low cholesterol heart healthy diet. Pt has family hx of CAD in the father. ECHO ordered - EF 60-65%, mild diastolic dysfxn Qualifiers: Chest pain type: chest pain on breathing Qualified Code(s): R07.1 - Chest pain on breathing; R07.81 - Pleurodynia (3) Obesity (BMI 30.0-34.9) Priority: Secondary Status: Chronic Assessment and Plan: BMI 32. Encourage pt to eat a heart healthy low fat, low cholesterol diet and to get regular exercise. (4) Acute respiratory failure with hypoxia Priority: Primary Status: Resolved Assessment and Plan: Pt admitted to the hospital and required O2. Pt not on O2 at home. Pt is weaned off O2 at this time Incentive spirometry encouraged Guafenacine for mucolytic (5) Leukocytosis Priority: Secondary Status: Resolved Assessment and Plan: WBC 9.6 Rocephin discon't Pt will be discharged today on omnicef for 1 week 300mg BID PO and naproxen prn for chest pain Qualifiers: Leukocytosis type: unspecified Qualified Code(s): D72.829 - Elevated white blood cell count, unspecified (6) Hypoxia Priority: Secondary Status: Resolved Assessment and Plan: Pt was successfully weaned off suppO2 . Incentive spironmetry encouraged Hospital course: Mr. Mayer is a 57 year old male admitted for pneumonia. He had acute respiratory failure requiring O2 tx. He was successfully weaned off O2 and given incentive spirometry He was found to have lower left lobe pneumonia and was put on IV levaquin. Switched to IV rocephin. Pt to be discharged today on PO omnicef 300mg BID and naproxen prn for pain. Also given guanfenicine for mucolytic. Pt encouraged to eat a low fat, low salt low cholesterol diet. His ECHO showed 60-65% EF and mild diastolic dysfxn Discharge discussed with: patient Time spent discussing smoking cessation with patient: 3 to 10 minutes - Time Spent with Patient Total time spent providing and/or coordinating discharge services: Less than 30 minutes - Discharge Medications Prescriptions: Cefdinir [Omnicef] 300 mg PO BID #14 capsule GuaiFENesin ER [Mucinex] 600 mg PO BID #10 tbbp.12hr Naproxen 125 mg PO Q12-24H PRN 7 Days #14 oral.susp PRN Reason: Pain Home Medications: Cefdinir [Omnicef] 300 mg PO BID #14 capsule 01/29/18 [Rx] GuaiFENesin ER [Mucinex] 600 mg PO BID #10 tbbp.12hr 01/29/18 [Rx] Naproxen 125 mg PO Q12-24H PRN 7 Days #14 oral.susp 01/29/18 [Rx] Allergies/Adverse Reactions: 3 Allergy/AdvReac Type Severity Reaction Status Date / Time No Known Allergies Allergy Verified 01/27/18 14:13 Date of admission: 01/28/18 00:52 Primary care physician: Teresa Huizar MD - Constitutional Vitals: Temp Pulse Resp BP Pulse Ox 97.7 F 90 16 131/75 94 01/29/18 07:58 01/29/18 07:58 01/29/18 07:58 01/29/18 07:58 01/29/18 07:58 General appearance: Present: A&O X 3, pleasant, obese - Neck Neck exam general surgery: Present: supple - Respiratory Respiratory exam: Present: decreased breath sounds (decreased breath sounds left lower lung field, left >right decreased) - Cardiovascular Cardiovascular exam: Present: RRR, +S1, +S2 - GI/Abdominal GI/Abdominal exam: Present: normal bowel sounds, soft, no peritoneal signs - Neurological Exam Neurological exam: Present: no focal deficits - Psychiatric Psychiatric exam: Present: normal mood - Skin Skin exam: Present: intact, normal color - Patient Status Disposition: Home, Self-Care Condition: Fair Overall status at discharge: patient is progressing back to baseline - Discharge Instructions Instructions: Naproxen (By mouth), Guaifenesin (By mouth), Cefdinir (By mouth) , Pneumonia (DC) Follow Up With: Teresa Huizar MD [Primary Care Provider] - - Diet and Activity Activity: increase activity as tolerated Diet: low fat, low cholesterol, low salt diet <Raymundo Vazquez - Last Filed: 01/29/18 19:03> Orders not resulted at time of discharge: Pending orders 01/28/18 10:25 Mycoplasma pneumoniae IgG IgM Routine Date of Encounter: 01/29/18 - Discharge Diagnosis (1) Pneumonia Status: Acute (2) Chest pain Status: Acute (3) Obesity (BMI 30.0-34.9) Status: Chronic Hospital course: Mr. Mayer is a 57 year old male - Time Spent with Patient Total time spent providing and/or coordinating discharge services: Date of admission: 01/28/18 00:52 Primary care physician: Teresa Huizar MD - Constitutional Vitals: Temp Pulse Resp BP Pulse Ox 97.8 F 82 20 135/82 95 01/29/18 12:05 01/29/18 12:05 01/29/18 12:05 01/29/18 12:05 01/29/18 12:05 - Attending Attestation I examined this patient and my medical decision-making was reviewed with the Resident Physician. I agree with the documented findings, disposition and treatment plan as described except to the extent set forth below.
[2018-01-29 12:13] VITALS: BP 135/82
[2018-01-30 09:44] LABS: Mycoplasma pneumoniae IgG 0.15 U/L (<=0.09)
== END 2018-01-29 14:05 | disposition home or self-care (01) ==
LOC: EMEROO 17:31 → 2ANU 17:31
PROVIDERS: ADMIT Internal Medicine; ATTEND Internal Medicine